=== PATIENT | male | born 1980 | race Caucasian/White ===

== ENCOUNTER 2017-08-14 15:25 | Emergency (ER) | payer MEDICAID, SELFPAY ==
[2017-08-14 15:27] VITALS: PULSE 67; RESP 20; TEMP 36.4; O2SAT 99; BMI 19.9
--- NOTE | 2017-08-14 15:49 | EKG12_ITS ---
Test Reason : CHEST PAIN Blood Pressure : / mmHG Vent. Rate : 068 BPM Atrial Rate : 068 BPM P-R Int : 114 ms QRS Dur : 106 ms QT Int : 422 ms P-R-T Axes : 076 067 062 degrees QTc Int : 448 ms Normal sinus rhythm Normal ECG Confirmed by WILTON GERONIMO, KALE ([id number]), newspaper editor managing HERNAN MORGAN ([id number]) on 08/19/2017 1:46:01 PM Referred By: Confirmed By:KALE NÚÑEZ MD
[2017-08-14 15:55] VITALS: O2SAT 100
[2017-08-14] MEDS: Ketorolac 30 MG/ML Syringe IV (16:00)
--- NOTE | 2017-08-14 16:00 | RAD_ITS ---
STUDY: X-RAY CHEST REASON FOR EXAM: Male, 36 years old. Chest pain TECHNIQUE: Single AP portable view of the chest. COMPARISON: 08.09.14. FINDINGS: The lungs are clear and expanded. There is no demonstrated pleural abnormality. Normal size heart. Normal mediastinum and valentín. Normal visualized pulmonary arteries. Normal visualized aortic arch and descending thoracic aorta. Normal visualized thoracic spine. Normal visualized ribs, clavicles, and shoulders. There is no demonstrated abnormality of the visualized soft tissue structures of the upper abdomen. RAD/Chest PA and Lateral IMPRESSION: Normal x-ray examination of the chest. Electronically Signed: Brigido Bates MD at 16:21 EDT , Service support ,
[2017-08-14 16:13] LABS: Basophil# 0.01 X10^3/uL; Basophil% 0.2 % (0-1); Eosinophil# 0.01 X10^3/uL; Eosinophils% 0.2 % (0-5); Hematocrit 39.8 % (40-54); Hemoglobin 14.5 g/dl (13.0-16.5); Lymphocyte % 20.1 % (19-41); Mean Corp Hgb Conc 36.4 g/gl (32-36); Mean Corpuscular Volume 82.4 fL (80-94); Monocyte# 0.39 X10^3/uL; Monocyte% 7.1 % (0-10); Neutrophil # 3.97 X10^3/uL (2.7-7.7); Neutrophil % 72.4 % (47-70); Platelet Count 170 K/mm3 (150-450); RBC Distribution Width CV 13.4 % (11.6-14.6); RBC Distribution Width SD 39.8 fl (35.1-43.9); Red Blood Count 4.83 M/mm3 (4.6-6.2); White Blood Count 5.5 K/mm3 (4.4-11.0)
[2017-08-14 16:14] LABS: POSITIVE COUNT NO; POSITIVE DIFFERENTIAL NO; POSITIVE MORPHOLOGY NO
[2017-08-14 16:19] LABS: Anion Gap 8 (5-15); BUN 7 mg/dL (7-18); BUN/Creat Ratio 6.6 RATIO (10-20); Chloride 107 mmol/L (98-107); Creatinine, Serum 1.06 mg/dL (0.70-1.30); EST Glomerular Filtration Rate 83 mL/min (>60); Est Glom Filt Rate - Afr Amer 100 mL/min (>60); Estimated Creatinine Clearance 84.06 ml/min; Glucose 101 mg/dL (74-106); Potassium 3.6 mmol/L (3.5-5.1); Sodium Level 142 mmol/L (136-145)
[2017-08-14 16:25] VITALS: BP 112/71; PULSE 50; RESP 18; O2SAT 100
[2017-08-14 17:06] LABS: D-Dimer Quantitative (DVT/PE) < 0.27 FEU/ug/m (0.27-0.49)
--- NOTE | 2017-08-14 17:18 | ED.DCSUM_ITS ---
- ER Visit Summary Date of Service: 08/14/17 Chief Complaint: Chest pain History of Present Illness: The patient is a 36 M who is arriving by EMS with a chief complaint of midsternal left-sided chest pain. He states it is sharp and stabbing. It is made worse with movement of his arm as well as palpation breathing and coughing. Symptoms began last night while taking his dog out. Denies any rashes. He does not feel short of breath. He has never had anything like this before. 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 He went to the nurse who called EMS. Denies any significant medical problems. Physical Examination: Afebrile vital signs are stable Gen: Well-nourished well-developed Head: Normocephalic atraumatic Eyes: Perrl EOMI ENT: TMs clear no rhinorrhea moist mucous membranes Neck: Supple no lymphadenopathy no JVD nontender CVS: Regular rate rhythm no murmurs normal S1-S2 Respiratory: No distress clear to auscultation bilaterally the left anterior chest wall is tender to palpation particularly over the left breast. Abdomen: Soft nontender nondistended normal bowel sounds no masses Back: Nontender Extremity: Nontender no edema Skin: Normal color no rash Neuro: alert orientated ?3 CN II-XII intact normal strength sensation reflexes gait cerebellar Psych: Anxious Test Results: EKG sinus rhythm at a rate of 68. CBC chemistries troponin d- dimer negative. Chest x-ray negative. Emergency Department Course and Treatment: Patient received IV Toradol and his pain is better. Patient be discharged home with scheduled ibuprofen. Work note for today given. Impression: 1. Chest wall pain This note was generated with [employer] dictation software. It may contain incorrect words, spelling, and punctuation that were not noted in review of the chart prior to signing ED Disposition - Plan for ED Patient: Disposition: Home or Assisted Living Chief Complaint: Chest Pain Instructions: ED Chest Pain Costochondritis Referrals: Stephani Gonzalez MD [STAFF PHYSICIAN] - 1 Week if not improving
[2017-08-14 17:29] VITALS: BP 115/72; PULSE 55; RESP 17; O2SAT 100
--- NOTE | 2017-08-14 17:30 | ED.RN ---
REVIEWED D/C INSTRUCTIONS, FOLLOW UP CARE, AND S/S THAT WOULD WARRANT A RETURN TO THE ED WITH PT. PT VERBALIZED AN UNDERSTANDING AND DENIES FURTHER QUESTIONS FOR THIS RN. PT SKIN P/W/D, RESP EVEN AND UNLABORED, PT A&O X 3, NO DISTRESS NOTED. PT AMBULATED OUT OF ED, GAIT STEADY.
== END 2017-08-14 17:31 | disposition home or self-care (01) ==
PROVIDERS: Emergency Provider Emergency Medicine
DX: R07.89 Other chest pain (principal); R06.00 Dyspnea, unspecified; R20.2 Paresthesia of skin; Z72.0 Tobacco use
CPT/HCPCS: 71046; 80048; 84484; 85025; 85379; 93005; 96374; 99285; J7030; A4216

== ENCOUNTER 2017-11-08 19:24 | Emergency (ER) | payer OTHER, MEDICAID, SELFPAY ==
[2017-11-08 19:24] VITALS: BP 114/82; PULSE 68; RESP 17; TEMP 36.6; O2SAT 100; BMI 19.3
--- NOTE | 2017-11-08 20:24 | ED.VISSUMM ---
- ER Visit Summary Date of Service: 11/08/17 Chief Complaint: Severe bilateral low back pain History of Present Illness: The patient is a 36 M who presents with severe bilateral low back pain without radiculopathy/sciatica secondary to chopping a truck load of wood yesterday. He denies bowel bladder dysfunction. He denies saddle paresthesia anesthesia. He denies foot drop. He denies weakness in his quadricep muscles going up and down steps. He reports his pain to be an 8. Patient states he took Tylenol without relief. He did take a warm shower which had no effect. Physical Examination: Vital signs are normal. He appears in obvious discomfort and only states his pain is an 8. He has pain palpation of the right and left lower back. 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 He was told not to take NSAIDs. Straight leg test is negative. Patella and ankle reflex are 2+. EHL is intact. He has normal sensation. Please read written note for complete detail Test Results: None Emergency Department Course and Treatment: In light of patient's complaint past history he received a [place] tablet since his fianc?e is here and can drive him home Treatment Plan: Opiate analgesia. Disposition: Discharged home with appropriate home-going instructions Impression: Bilateral low back pain without sciatica This note was generated with [employer] dictation software. It may contain incorrect words, spelling, and punctuation that were not noted in review of the chart prior to signing ED Disposition - Plan for ED Patient: Disposition: Home or Assisted Living Chief Complaint: Back Instructions: ED Sprain Strain Lumbar Prescriptions: Hydrocodone Bitart/Apap 5-325 [[place] 5MG-325MG] 1 tab PO Q6H PRN PRN 3 Days #10 tab PRN Reason: Pain Referrals: Care Physician,No Primary [Primary Care Provider] - Ligia Ansari [NON-STAFF] - 3-5 Days if not improving Additional Instructions: Apply ice 20-30 minutes at a time 6-8 times a day
[2017-11-08] MEDS: HYDROcodone Bitartrate/Apap 5/325 Tablet PO (20:32)
== END 2017-11-08 20:33 | disposition home or self-care (01) ==
PROVIDERS: Emergency Provider Emergency Medicine
DX: M54.5 Low back pain (principal); Z87.448 Personal history of other diseases of urinary system; Z87.19 Personal history of other diseases of the digestive system; Z72.0 Tobacco use
CPT/HCPCS: 99281